=== PATIENT | female | born 1985 | race Caucasian/White ===

== ENCOUNTER 2017-03-02 19:52 | Emergency (ER) | payer MEDICAID ==
[2017-03-02 19:58] VITALS: BP 136/73
== END 2017-03-02 21:29 | disposition home or self-care (01) ==
LOC: ED 19:52
DX: M54.40 Lumbago with sciatica, unspecified side (principal); E66.9 Obesity, unspecified; H54.0 Blindness, both eyes
CPT/HCPCS: J1885